=== PATIENT | female | born 1990 | race Caucasian/White ===

== ENCOUNTER 2016-12-26 19:06 | Emergency (ER) | payer BC ==
[2016-12-26 16:51] LABS: BASOPHILS 0.4 %; BASOPHILS ABSOLUTE 0.03 10/3/uL (0.0-0.16); EOSINOPHILS ABSOLUTE 0.07 10/3/uL (0.0-0.53); HEMATOCRIT 37.2 % (36.0-48.0); HEMOGLOBIN 11.8 g/dL (12.0-16.0); IMMATURE GRANULOCYTES 0.3 %; IMMATURE GRANULOCYTES ABSOLUTE 0.02 10/3/uL (0.0-0.11); LYMPHOCYTES 31.6 %; LYMPHOCYTES ABSOLUTE 2.18 10/3/uL (0.67-4.30); MEAN CORPUS HGB CONC 31.7 g/dL (32.0-36.0); MEAN CORPUSCULAR HEMOGLOB 30.1 pg (26.0-34.0); MEAN CORPUSCULAR VOLUME 94.9 fL (80-100); MEAN PLATELET VOLUME 11.2 fL (9.2-13.0); MONOCYTES 6.7 %; MONOCYTES ABSOLUTE 0.46 10/3/uL (0.21-1.20); NEUTROPHILS ABSOLUTE 4.13 10/3/uL (2.02-8.40); PLATELET COUNT 257 10/3/uL (150-400); RBC DISTRIBUTION WIDTH 13.7 % (12.0-16.0); RED CELL COUNT 3.92 10/6/uL (4.0-5.6); WHITE BLOOD CELLS 6.9 10/3/uL (4.5-10.5)
[2016-12-26 16:52] LABS: MANUAL DIFF NO %
[2016-12-26 16:55] LABS: ASCORBIC ACID (UR NOT ORDER) NEG (NEG); BILIRUBIN, URINE NEGATIVE (NEG); ER URINALYSIS TAT 0 Hrs 08 Mins; KETONE, URINE NEGATIVE (NEG); LEUKOCYTE ESTERASE(NOT OR SMALL (NEG); NITRITE (URINE) NEG (NEG); WBC (NOT ORDERED) (RFLEX) 4 (0-5)
[2016-12-26 17:15] LABS: A/G RATIO 0.9 (0.7-1.9); ALBUMIN 3.7 G/DL (3.5-5.0); ALKALINE PHOSPHATASE 138 U/L (45-117); BUN (BLOOD UREA NITROGEN) 9 MG/DL (6-23); CALCIUM, SERUM 8.5 MG/DL (8.5-10.4); CHLORIDE, SERUM 110 MMOL/L (96-112); CO2 (CARBON DIOXIDE) 24 MMOL/L (24-34); CREATININE 0.78 MG/DL (0.55-1.02); GFR AFRICAN AMERICAN 123 ML/MIN (>=60); GFR NON AFRICAN AMERICAN 106 ML/MIN (>=60); GLUCOSE, SERUM 88 MG/DL (60-99); POTASSIUM, SERUM 3.5 MMOL/L (3.5-5.3); SGOT(AST) 14 U/L (5-40); SGPT(ALT) 36 U/L (5-65); SODIUM, SERUM 143 MMOL/L (135-148); TOTAL BILIRUBIN 0.3 MG/DL (0-1.2); TOTAL PROTEIN 7.7 G/DL (6.0-8.5)
[~2016-12-26 19:06] MED LIST: CEFADROXIL1 GM; CEFT5 PO; CIP5 PO; DEPO PROVERA IM; DIL2TAB PO; DIL4TAB; DIL4TAB PO; FERROUS SULF325 M1 PO; FESO4 PO; FIOR PO; FIORICET/COD OR; FIORINALC PO; FLAG500TAB PO; FLORASTOR250 MG PO; FLUCON2; HALF81 PO; HARD NAILS PO; IRON PO; IRON325 MG PO; LEVAQUIN750 MG PO; MICRO-K10 MEQ PO; MULTI-VIT HP OR; MULTIVIT/MIN PO; NORCO1 TAB PO; PCET PO; PERCOCET1 TA2 PO; PR25 PO; PREVALITE4 G1 PO; PROAIR HFA INH; PROTONIX; PROTONIX PO; PROZAC40 MG PO; QUESLITE; TRAZ100 PO; TRAZODONE150 MG PO; ULTRAM50; ULTRAM50 PO; VIB100 PO; VIBRATAB100 MG; ZOFRANODT8 PO; [UNRECOGNIZED DRUG - OTHER] PO; [UNRECOGNIZED DRUG - OTHER] PO
== END 2016-12-26 19:59 | disposition home or self-care (01) ==
LOC: ER 19:06
PROVIDERS: Nurse Practitioner Acute Care
DX: K50.90 Crohn's disease, unspecified, without complications (principal); J45.909 Unspecified asthma, uncomplicated; K21.9 Gastro-esophageal reflux disease without esophagitis; F32.9 Major depressive disorder, single episode, unspecified; F41.9 Anxiety disorder, unspecified; D64.9 Anemia, unspecified; Z88.5 Allergy status to narcotic agent; Z79.899 Other long term (current) drug therapy
CPT/HCPCS: 74178; 80053; 81001; 83690; 84703; 85025; 87086; 96374; 96375; 99285; J1170; J2405; Q9967

== ENCOUNTER 2017-03-12 13:39 | Inpatient (IN) | payer BC ==
--- NOTE | ~2017-03-12 | CN ---
Consultation Report [facility] [address] [place]. [address] NAME: CHARISSA MILLS : 89 STATUS : ADM IN [facility]#: [id number] AGE: 26 ADM/REG DATE : 03/12/17 MR#: [id number] REPORT SERV DATE: 03/13/17 DICTATED BY: CHALINO BOSWELL DATE: 03/13/17 REPORT STATUS : Draft TRANSCRIBED BY: MODL DATE: 03/13/17 GI CONSULTATION DATE OF CONSULTATION: REASON FOR CONSULTATION: For Crohn disease and abdominal pain. HISTORY OF PRESENT ILLNESS: This is a 26-year-old white female, who is a patient Dr. Gagandeep Aviles. She was diagnosed with Crohn disease, had an ileal resection back in 2014, apparently had anastomotic leak and ended up with abscesses and had to have reoperation. It looks like the original surgery was in 11/[address] Benavides, had anastomotic leak and went back to the operating room 12/02/2014 for anastomotic leak, has lysis of adhesions, irrigation of abdominal cavity, resection of coloileal anastomosis, and stapling of the colon. She then underwent a surgery in 05/2015 with exploratory laparotomy, lysis of adhesions, amputation of the transverse colon, closed Rachelle pouch, removal of Yi ileostomy with ileotransverse colostomy and anastomosis stapled, a small peristomal hernia was seen and repaired. The patient then also had surgery by Dr. Apple for incisional hernia repair 02/23/2016. She had called yesterday with complaints of severe abdominal pain, was instructed to go to the emergency room. Normally, she has two to six stools per day and she reported that has not changed. She has daily abdominal pain, which increased in intensity over the last 48 hours. She has also had a couple of days of nausea and vomiting. She denies any fever or chills. Main complaint is the intensity of the pain has increased. She denies any hematochezia over the last 48 hours. No melena. No hematemesis. Pain is increased with bowel movements and also eating. PAST MEDICAL HISTORY: Includes Crohn disease, migraine headaches, gastroesophageal reflux, anxiety, history of drug abuse, narcotic dependency, and chronic pain and is managed by a pain management, Dr. Henderson. PAST SURGICAL HISTORY: As listed above. HOME MEDICATIONS: Include Butrans, Cimzia, Klonopin, Flexeril, Neurontin, Percocet, trazodone, and Effexor. ALLERGIES: MORPHINE. REVIEW OF SYSTEMS: A 10-point review of systems, otherwise, negative. HABITS: History of smoking. Apparently a former smoker. Occasional alcohol. No drug use reported. PHYSICAL EXAMINATION: VITAL SIGNS: Temperature is 99.7, pulse 77, blood pressure 103/64, O2 saturation is 98%, Consultation Report [address] [address] NAME: CHARISSA MILLS : [birth year] STATUS : ADM IN PAT#: [id number] AGE: 26 ADM/REG DATE : 03/12/17 MR#: [id number] REPORT SERV DATE: 03/13/17 DICTATED BY: CHALINO BOSWELL DATE: 03/13/17 REPORT STATUS : Draft TRANSCRIBED BY: KIANA DATE: 03/13/17 and respiratory rate is 16. HEENT: Normocephalic and atraumatic. Extraocular muscles are intact. NECK: Supple. No JVD. HEART: Regular without murmurs, thrills, or lifts. LUNGS: Clear to auscultation without rales or rhonchi. ABDOMEN: She has diffuse tenderness mainly below the navel area and right lower quadrant. EXTREMITIES: No cyanosis, clubbing, or edema. NEUROLOGIC: She is alert, oriented, and answers questions appropriately. PSYCHIATRIC: Normal mood and affect. LABORATORY DATA: CT scan 03/12/2017 without contrast showed no acute changes, on the noncontrast CT of the abdomen and pelvis. Sodium is 145, potassium 4.2, chloride 114, CO2 is 27, BUN 7, and creatinine 0.71. Lipase 77. LFTs are normal except alkaline phosphatase was mildly elevated at 151. White count is 10.4, which is down from 17, hemoglobin 11.5, hematocrit 34.9, platelet count 298. IMPRESSION: 1. Crohn's exacerbation with increased abdominal pain. 2. History of ileal Crohn's, on Cimzia, status post resection and reanastomosis. 3. Chronic pain, managed by pain management, Dr. Henderson. RECOMMENDATION: 1. I agree with stool studies. Rule out infection. 2. Empiric antibiotics for now. 3. If stools are negative, plan to institute IV steroids. 4. If pain persists, may need to get a contrast CT. We will follow with you. LISBET/KIANA Chalino Boswell M.D. / [id number] CC: MD Gonzalo Stewart II, M.D.
--- NOTE | ~2017-03-12 | HP ---
History And Physical [id number] [place]. [address] NAME: CHARISSA MILLS : [birth year] STATUS : ADM IN [facility]#: [id number] AGE: 26 ADM/REG DATE : 03/12/17 MR#: [id number] REPORT SERV DATE: 03/12/17 DICTATED BY: STEVIE HERNÁNDEZ DATE: 03/12/17 REPORT STATUS : Draft TRANSCRIBED BY: MODL DATE: 03/12/17 DATE OF ADMISSION: 03/12/2017 HISTORY OF PRESENT ILLNESS: This is a 26-year-old female with a past medical history of Crohn disease, who presented to [facility] Emergency Room complaining of abdominal pain, which was worsening from the baseline abdominal pain. The patient reported that since she had her surgery in 2014 when she had perforation secondary to her Crohn disease, she always had chronic abdominal pain, but for the last couple of days the pain was worsening and the patient had episodes of nausea and vomiting yesterday and the day before as well as she had diarrhea worsening, at least 5 bowel movements a day without any blood in it. The patient reported that the pain located in the mid abdominal pain, but it is moving through the abdomen in different places on the right and left from the mid abdominal area. It is sharp in character. She denies any chest pain. No shortness of breath. No fever. No rash. No headache. REVIEW OF SYSTEMS: 14-point review of systems was done and negative, except what is stated in the history of present illness. PAST MEDICAL HISTORY: 1. Known for history of Crohn disease and history of perforation secondary to Crohn disease in 2014, history of ileostomy after perforation, history of abscess treatment after perforation. 2. History of exploratory laparotomy. 3. History of partial colonic resection. 4. History of ileostomy reversal. 5. History of depression and anxiety. 6. History of narcotic dependency, now goes with the pain management, Dr. Crook, with Dr. Gagandeep Henderson. 7. She has history of mild asthma, for which she takes inhaler. 8. History of gastroesophageal reflux disease. 9. History of iron deficiency anemia. 10.History of pelvic abscess, status post surgery. PAST SURGICAL HISTORY: Includes appendectomy, terminal ileal resection and ileocolic anastomosis, pelvic abscess drainage. SOCIAL HISTORY: No tobacco. No alcohol use. She is a former smoker. She uses alcohol socially, she said maybe very rare. 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 ALLERGIES: SHE IS ALLERGIC TO MORPHINE. FAMILY HISTORY: Mother has diabetes. Father has porphyria. HOME MEDICATIONS: She takes Cimzia as well as she takes trazodone, Prozac. She is on pain management with a Butrans patch, as well as she is on oxycodone. Pharmacy is going to History And Physical [address] [address] NAME: CHARISSA MILLS : [birth year] STATUS : ADM IN PAT#: [id number] AGE: 26 ADM/REG DATE : 03/12/17 MR#: [id number] REPORT SERV DATE: 03/12/17 DICTATED BY: STEVIE HERNÁNDEZ DATE: 03/12/17 REPORT STATUS : Draft TRANSCRIBED BY: KIANA DATE: 03/12/17 clarify all her home medications. Also, the patient never had a history of Clostridium difficile in the past. PHYSICAL EXAMINATION: GENERAL: A well-nourished and well-developed female, not in acute distress. Resting quietly. VITAL SIGNS: Blood pressure 104/68, temperature 98.4, heart rate in one-teens earlier but then in 90s, respiratory rate 20, oxygen saturation 97% on room air. HEENT: Head; atraumatic, normocephalic. Conjunctivae clear. Pupils are equal and reactive to light and accommodation. Extraocular muscles are intact. NECK: Supple. Trachea is midline. No supraclavicular or cervical lymphadenopathy. LUNGS: Clear to auscultation bilaterally. Normal respiratory effort. CARDIOVASCULAR SYSTEM: Regular rate and rhythm. Point of maximal impulse not displaced. ABDOMEN: Very soft. There is tenderness to palpation in the mid abdominal area, also in the right and left side. There are normoactive positive bowel sounds. There is no guarding on rebound. Very benign abdominal examination. EXTREMITIES: No clubbing, cyanosis, or edema. SKIN: Normal color and turgor. PSYCHIATRIC: Anxious mood and affect. LABORATORY RESULTS: White count 17.4, hemoglobin 14, hematocrit 42.1, platelet count 335. Sodium 141, potassium 3.8, chloride 108, carbon dioxide 26, BUN 8, creatinine 0.89, blood sugar 92. ALT 35, AST 24, lipase 77. Urinalysis showed trace amount of ketones and trace amount of leukocyte esterase, only 4 white cells. test was negative. CT abdomen and pelvis without contrast, which was done today, no evidence of inflammation or abscess in the region of appendix or elsewhere. Bladder is unremarkable. No abnormalities in the uterus and adnexa. In the abdomen, there are air fluid levels seen in the colon in a nonobstructive pattern. No small bowel distention. The liver and spleen are normal in size with no masses. Overall impression, no acute changes on noncontrast CT of the abdomen and pelvis. ASSESSMENT AND PLAN: This is a 26-year-old female with a history of Crohn disease, history of bowel resection and perforation in the past, who presented with increased abdominal pain for the last couple of days with episodes of nausea and increased diarrhea, was found to have normal CT of the abdomen and pelvis, with significant leukocytosis. We are going to admit the patient to the hospital. We will give the patient IV fluid hydration. Landon, nurse practitioner, in the emergency room spoke with Dr. Malone, who recommended the patient to be started on Levaquin and Flagyl, and the patient was given Levaquin and Flagyl per recommendation of Dr. Malone already in the emergency room. We are going to check her stool studies if she will have more diarrhea. We will check stool for Clostridium difficile. We will check stool for white cells and stool cultures, and antibiotics will be continued as well as if stool will be positive for Clostridium difficile, next dose of Levaquin will not be given. Also, presser all around Dr. Malone will be consulted. We will give her also symptomatic treatment of nausea and vomiting, as well as regarding her pain, she has narcotic History And Physical [address] [address] NAME: CHARISSA MILLS : 89 STATUS : ADM IN [facility]#: [id number] AGE: 26 ADM/REG DATE : 03/12/17 MR#: [id number] REPORT SERV DATE: 03/12/17 DICTATED BY: STEVIE HERNÁNDEZ DATE: 03/12/17 REPORT STATUS : Draft TRANSCRIBED BY: MODSarah DATE: 03/12/17 dependency, we will give her reasonable amount of pain control with intravenous Dilaudid, but we will hold for sedation. The patient also takes Butrans and other medications such as oxycodone, and the patient and her father were explained that these medications can cause over-sedation. Her home medications clarified by pharmacy, they include Butrans 7.5 patch every seven days on Tuesday, Cimzia one dose every 30 days, Klonopin 0.5 mg p.o. three times daily p.r.n. for anxiety, Flexeril 5 mg three times daily p.r.n. for spasm, Neurontin 600 p.o. b.i.d. and 1200 at bedtime, trazodone 150 at bedtime p.r.n., she is also on Effexor 150 mg p.o. daily. We will hold trazodone for over sedation as well as Neurontin if she is sedated. My partner will see this patient starting tomorrow morning. Everything was discussed with the patient and her father. MG/MODL Stevie Hernández M.D. / [id number] CC: Gonzalo Samaniego II, M.D.
--- NOTE | ~2017-03-12 | DS ---
Discharge Summary [facility] [address] [place]. [address] NAME: CHARISSA MILLS : [birth year] STATUS : ADM IN [facility]#: [id number] AGE: 26 ADM/REG DATE : 03/12/17 MR#: [id number] REPORT SERV DATE: 03/20/17 DICTATED BY: JOLENE GALEANO LITZY DATE: 03/19/17 REPORT STATUS : Draft TRANSCRIBED BY: MODL DATE: 03/19/17 ADMISSION DATE: 03/12/2017 DISCHARGE DATE: The patient is a 26-year-old female with a history significant for Crohn disease who is status post Crohn disease in 2014 which required resection with anastomosis. Significantly status post the anastomosis, re-evaluation noted that the anastomosis had leaked, and she was reoperated on and required ileostomy that was temporary. Given the complication, the patient was managed for an extended period in the ICU. Her first surgery was in November of 2014 and her re-operation due to the leak was on 12/02/2014 during which time patient was managed in the ICU. The patient was reoperated in May 2015 with re-establishment of an alimentary canal. Also on 02/23/2016, the patient had an incisional hernia repair by Dr. Apple. Secondary to her multiple surgeries, the patient has been managed for chronic pain by the pain specialist in Dr. Henderson's group. The patient now presented to the hospital on 03/12/2017 with a complaint of abdominal pain which was worsening from baseline. For further details, please refer to H and P dictated by Dr. Ramos on 03/12/2017. Upon presentation to the hospital, the patient was admitted on the Hospitalist Service for further management. Given her history of complicated Crohn disease, GI was consulted to assist with management. For further details, please refer to consultation note by GI dictated by Dr. Panda on 03/13/2017. Multiple treatment options were tried including initiation of antibiotics with no control of pain. The patient was placed on opioid pain medications with no good control achieved for her pain. During hospital course, the patient was very nervous about her abdominal pain stating that her abdominal pain was similar to her 2015 abdominal pain which resulted in perforation requiring surgery. Given her concern, Surgery was subsequently consulted. For further details, please refer to consultation note dictated by Dr. Benavides on 03/17/2017. During hospital course, the patient has had extensive workup including an upper endoscopy. She has had multiple imaging of her abdomen including CT, MRI, ultrasound of the gallbladder, a HIDA scan, a transvaginal ultrasound, all which have come back negative. Per Surgery's evaluation, there is no indication for any surgical intervention at this time. However given extensive workup, the patient is still complaining of abdominal pain. Workup has been concluded by GI, and GI has signed off on the case. Surgery has evaluated the patient and has deemed that there is no surgical intervention indicated at this time based on the imaging studies. Given conclusion of workup, the patient will be discharged today to follow up with Surgery as outpatient. Plan has been discussed with the patient, who voices understanding and is agreeable with this plan. DISCHARGE DIAGNOSES: 1. Abdominal pain. 2. History of Crohn disease. 3. Chronic pain management. 4. History of perforation secondary to Crohn disease. DISCHARGE PHYSICAL EXAMINATION: VITAL SIGNS: Blood pressure 111/56 with a pulse of 60, Discharge Summary [address] [address] NAME: CHARISSA MILLS : [birth year] STATUS : ADM IN PAT#: [id number] AGE: 26 ADM/REG DATE : 03/12/17 MR#: [id number] REPORT SERV DATE: 03/20/17 DICTATED BY: JOLENE GALEANO DATE: 03/19/17 REPORT STATUS : Draft TRANSCRIBED BY: KIANA DATE: 03/19/17 respirations 12, O2 saturation 99% on room air. GENERAL: The patient lying in bed, appears stated age in no apparent acute distress. HEENT: Normocephalic and atraumatic. Extraocular motors intact. Oral mucosa moist. Pupils are round and reactive to light and accommodation. NECK: Trachea midline and symmetric. No thyromegaly present. No JVD noted. CHEST: Nontender to palpation. No scars noted. CARDIOVASCULAR: Regular rate and rhythm. S1, S2. No murmurs, rubs, or gallops. LUNGS: Clear to auscultation bilaterally. No wheezes, rales, or rhonchi. ABDOMEN: Positive bowel sounds. Tenderness noted in the right upper and lower quadrant to deep palpation. Abdominal scar is also noted on the right quadrant, well healed. Deep palpation not done secondary to pain. EXTREMITIES: No cyanosis, no clubbing, no edema. NEUROLOGIC: Alert and oriented x3. No focal deficits appreciated. IMAGIN. CT abdomen and pelvis without contrast on 03/12/2017 impression: No acute changes on noncontrast CT exam of the abdomen and pelvis. 2. Gallbladder ultrasound impression: Negative ultrasound exam of gallbladder. 3. HIDA scan with EF, impression: Normal HIDA scan with gallbladder ejection fraction of 82%. 4. MRI abdomen with and without contrast impression: Postoperative changes identified consistent with prior partial colon and ileal-small bowel resection. There is some collapse of bowel loops in the left upper abdomen and no evidence of mechanical obstruction. There is no evidence of any focal inflammation of the GI tract. 5. MRI pelvis with and without contrast impression: Postoperative changes identified consistent with prior partial colon and ileal-small bowel resection. There is some collapse of small bowel loops in the left upper abdomen. No evidence of mechanical obstruction. There is no evidence of any focal inflammation of the GI tract. 6. Pelvic ultrasound diagnostic echo impression: Normal pelvic ultrasound. No adnexal masses or ascites seen. CONSULTANTS: 1. GI. 2. Surgery. DISPOSITION: The patient will be discharged home to follow up with Surgery and primary care physician. ACTIVITY: As tolerated. DIET: As tolerated. Greater than 40 minutes was spent providing counseling, dictation of note, dressing concerns of the patient, medication reconciliation, discussion of care with nursing staff. DICTATED BY: Jolene Galeano MD Discharge Summary [address] [address] NAME: CHARISSA MILLS : [birth year] STATUS : ADM IN [facility]#: [id number] AGE: 26 ADM/REG DATE : 03/12/17 MR#: [id number] REPORT SERV DATE: 03/20/17 DICTATED BY: JOLENE GALEANO DATE: 03/19/17 REPORT STATUS : Draft TRANSCRIBED BY: MODSarah DATE: 03/19/17 LIV/KIANA Jolene Galeano MD / [id number] CC: MD Jolene Gonazlez II, M.D.
--- NOTE | ~2017-03-12 | EGD ---
EGD REPORT [facility] [address] [address] NAME: CHARISSA GEORGE : 89 STATUS : ADM IN PAT#: [id number] AGE: 26 ADM/REG DATE : 03/12/17 MR#: [id number] REPORT SERV DATE: 03/18/17 DICTATED BY: MAX FORD DATE: 03/18/17 REPORT STATUS : Draft TRANSCRIBED BY: [facility] DATE: 03/18/17 Endoscopy Center Patient Name: Charissa George Date of : 1990 Attending MD: MAX BAPTISTE MD Procedure Date No Time: 03/18/2017 Procedure: Upper GI endoscopy Indications: Generalized abdominal pain, Nausea Referring MD: JOLENE HERNÁNDEZ II Medicines: Monitored Anesthesia Care Complications: No immediate complications. Estimated blood loss: Minimal. Procedure: Pre-Anesthesia Assessment: - ASA Grade Assessment: III - A patient with severe systemic disease. After obtaining informed consent, the endoscope was passed under direct vision. Throughout the procedure, the patient's blood pressure, pulse, and oxygen saturations were monitored continuously. The GIF [id number] was introduced through the mouth, and advanced to the second part of duodenum. The upper GI endoscopy was accomplished without difficulty. The patient tolerated the procedure well. Findings: The examined esophagus was normal. The entire examined stomach was normal. Biopsies were taken with a cold forceps for Helicobacter pylori testing. Estimated blood loss was minimal. Dilated lacteals were found at 2nd part of the duodenum. Biopsies were taken with a cold forceps for evaluation of celiac disease. Estimated blood loss was minimal. The cardia and gastric fundus were normal on retroflexion. The exam was otherwise without abnormality. Impression: - Unremarkable examination of the upper GI tract - No obvious explanation for symptoms Recommendation: - Return patient to hospital [facility] for ongoing care. - Await pathology results. - Use Protonix (pantoprazole) 40 mg PO daily. Procedure Code(s): --- Professional --- 68969, Esophagogastroduodenoscopy, flexible, transoral; with biopsy, single or multiple EGD REPORT [address] [address] NAME: CHARISSA GEORGE : [birth year] STATUS : ADM IN [facility]#: [id number] AGE: 26 ADM/REG DATE : 03/12/17 MR#: [id number] REPORT SERV DATE: 03/18/17 DICTATED BY: MAX FORD DATE: 03/18/17 REPORT STATUS : Draft TRANSCRIBED BY: [employer] DATE: 03/18/17 Diagnosis Code(s): --- Professional --- K31.9, Disease of stomach and duodenum, unspecified R10.84, Generalized abdominal pain R11.0, Nausea CPT copyright 2013 [employer]. All rights reserved. The codes documented in this report are preliminary and upon patient transportation driver review may be revised to meet current compliance requirements. Max Baptiste MD MAX BAPTISTE MD 03/18/2017 7:49 AM This report has been signed electronically. Number of Addenda: 0 Note Initiated On: 03/18/2017 7:11 AM Scope Withdrawal Time 0 hours 0 minutes 0 seconds
--- NOTE | ~2017-03-12 | CN ---
Consultation Report [facility] [address] [place]. [address] NAME: CHARISSA GEORGE : 89 STATUS : ADM IN [facility]#: [id number] AGE: 26 ADM/REG DATE : 03/12/17 MR#: [id number] REPORT SERV DATE: 03/17/17 DICTATED BY: BENITO BENAVIDES III DATE: 03/16/17 REPORT STATUS : Draft TRANSCRIBED BY: MODL DATE: 03/16/17 CONSULTATION FOR SURGERY. DATE OF CONSULTATION: 03/16/2017 HISTORY OF PRESENT ILLNESS: Charissa George is a 26-year-old female well known to me from previous management of severe Crohn disease. The patient presents now with continued chronic abdominal pain on pain management by Dr. Henderson. She gives a history of severe pain and interrupted episodes of chronic pain interrupted by exacerbations of severe abdominal pain mostly in the mid lower abdomen. She is now admitted secondary to acute episode with leukocytosis with no particular precipitating event. She has been followed diligently by Dr. Aviles and has had followup colonoscopy with ileal intubation back in December of this year as well as a CT scan done in December that showed very little active Crohn disease. Past history on the patient is significant that she had a significant episode of Crohn disease in 2014 that required a resection with anastomosis, but the anastomotic area leaked and she was re-operated and required an ileostomy that was temporary. She had a significant amount of bowel resection at that time. She was in the intensive care unit for some time, but eventually responded and was able to go home to be followed up back in the operating room. Her original surgery was in first part of 11/2014 and her anastomotic leak was operated on 12/02/2014. She ultimately underwent an operation in 05/2015 for a re- establishment of alimentary canal continuity removing most of the transverse colon and closing the Rachelle's pouch with removal of the Yi ileostomy with an ileotransverse colostomy, staple anastomosis. She also has a small parastomal hernia that was repaired at that time. Subsequently, on 02/23/2016, she had an incisional hernia repair by Dr. Apple. She has continued to have chronic pain, but now complains of admission secondary to severe abdominal pain exacerbation. She typically has 2-6 loose stools a day, which have been unchanged. She has had nausea and vomiting accompanying the present illness, but has had no fever or chills. She denies blood in her stool or vomitus and states that her pain is worse with straining to have bowel movements, urinate, or eat. PAST MEDICAL HISTORY: Includes Crohn disease, migraine headaches, gastroesophageal reflux disease, anxiety disorder, history of drug abuse, narcotic dependency on chronic pain management by Dr. Henderson. She also has implants for controlled in her arm, which were in about a year. MEDICATIONS: Her home medicines include Butrans, Cimzia kit, Klonopin, Flexeril, Neurontin 600 at breakfast and lunch and 1200 at bedtime, oxycodone 7.5/325 one twice a day, trazodone 150 mg at bedtime, and Effexor XR 150 mg daily. Also, again stated that she has implants for hormone manipulation to prevent periods which she does not have since that implant. Consultation Report [address] [place]. [address] NAME: CHARISSA GEORGE : 89 STATUS : ADM IN [facility]#: [id number] AGE: 26 ADM/REG DATE : 03/12/17 MR#: [id number] REPORT SERV DATE: 03/17/17 DICTATED BY: BENITO BENAVIDES III DATE: 03/16/17 REPORT STATUS : Draft TRANSCRIBED BY: KIANA DATE: 03/16/17 ALLERGIES: SHE IS ALLERGIC TO MORPHINE. REVIEW OF SYSTEMS: In addition, review of systems show her to be gaining some weight and she does have migraine headaches followed by Dr. Pan Pate; has asthma, on inhaler which she hardly ever uses. First diagnosis of Crohn disease was in 11/2014. Her colonoscopy was in 12/2015 or 01/[address] Aviles. She has a history of UTIs and ovarian cyst. She has a history of depression, anxiety, and sees Dr. Wolff for that problem. She also has some chronic anemia. Her PCP is Dr. 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 She denies any particular exercise program. She has had an iliac plexus block by Dr. Armaan dan for pain alleviation as well as a transabdominal plane block by Dr. Henderson. PHYSICAL EXAMINATION: GENERAL: The patient is a mildly obese white female, in no acute distress. HEENT: Without lateralization. She does have a nasal ring. NECK: Her neck was supple without thyromegaly or lymphadenopathy. CHEST: Clear. HEART: Regular rate and rhythm. ABDOMEN: Soft with multiple scars that are well healed without hernia. She was tender mostly in the suprapubic and 4 to 8 cm above the symphysis pubis, more in the midline with very little right lower quadrant tenderness. Her bowel sounds were normal. IMAGING: CAT scans were reviewed from 01/07 and 03/12 and reviewed with radiologist, Dr. Smith. Also, an MRI from 03/15 was reviewed with radiologist Dr. Smith. Very little inflammatory response was noted on the studies from 12/2015, but there is slightly more inflammatory response on the 02/2017 study although it was not called by the radiology analysis. MRI shows very little abnormality. The patient's lab work showed initially a leukocytosis, but her leukocytosis is since resolved. FAMILY HISTORY: Positive for recent diagnosis in her father of intermittent of porphyria which was recently diagnosed and symptoms in grandmother that are suspicious for porphyria. SOCIAL HISTORY: She works at a [employer], has a history of smoking and says that she has quit. Occasional alcohol use. Denies present drug abuse, but uses the drugs prescribed for her. LABORATORY DATA: Lab work on admission showed her alkaline phosphatase to be mildly elevated at 151 and her white count was slightly elevated on admission at 17,000, but has since normalized. Consultation Report [address] [address] NAME: CHARISSA GEORGE : 89 STATUS : ADM IN [facility]#: [id number] AGE: 26 ADM/REG DATE : 03/12/17 MR#: [id number] REPORT SERV DATE: 03/17/17 DICTATED BY: BENITO BENAVIDES III DATE: 03/16/17 REPORT STATUS : Draft TRANSCRIBED BY: KIANA DATE: 03/16/17 IMPRESSION: She has Crohn disease with probable exacerbation with increased abdominal pain, rule out other sources; history of ileal Crohn disease on Cimzia, status post resection and anastomosis. Chronic pain management and history of multiple blocks for attempted control. We also consider diagnosis of intermittent porphyria which may be very difficult to diagnose since this test is usually only positive when the patient is having an exacerbation. Also, endometriosis could be problematic as well as intermittent small bowel obstruction complicated by the patient's history of drug over utilization and dependence. We will order an ultrasound of the pelvis as well as urine porphyrins. There is no surgical indication on this patient. I have explained to the patient and her father who was present that surgical intervention would be fraught with many potential complications including short-bowel syndrome since she has had a significant resection of bowel at this point and with the amount of adhesions and scar tissue as well as potential extensive resection, she could end up with short-bowel syndrome, requiring chronic TPN or elemental feedings or worse. Surgical intervention should be only considered for issues of extreme acuity and/or failure of response to therapy in the face of extreme acuity. RB/MODL Benito Benavides III, M.D. / [id number] CC: MD Gonzalo Gonzalez II, M.D. Gregory Olds, MD Kent Childs, MD
[2017-03-12 14:38] LABS: ASCORBIC ACID (UR NOT ORDER) NEG (NEG); BILIRUBIN, URINE SMALL (NEG); ER URINALYSIS TAT 0 Hrs 12 Mins; KETONE, URINE TRACE MG/DL (NEG); LEUKOCYTE ESTERASE(NOT OR TRACE (NEG); NITRITE (URINE) NEG (NEG); WBC (NOT ORDERED) (RFLEX) 4 (0-5)
[2017-03-12 15:16] LABS: BASOPHILS 0.2 %; BASOPHILS ABSOLUTE 0.03 10/3/uL (0.0-0.16); EOSINOPHILS 0.2 %; EOSINOPHILS ABSOLUTE 0.04 10/3/uL (0.0-0.53); IMMATURE GRANULOCYTES 0.4 %; IMMATURE GRANULOCYTES ABSOLUTE 0.07 10/3/uL (0.0-0.11); LYMPHOCYTES 18.4 %; LYMPHOCYTES ABSOLUTE 3.21 10/3/uL (0.67-4.30); MEAN CORPUSCULAR HEMOGLOB 32.6 pg (26.0-34.0); MEAN PLATELET VOLUME 10.6 fL (9.2-13.0); MONOCYTES 5.8 %; MONOCYTES ABSOLUTE 1.02 10/3/uL (0.21-1.20); NEUTROPHILS ABSOLUTE 13.07 10/3/uL (2.02-8.40); RBC DISTRIBUTION WIDTH 13.7 % (12.0-16.0)
[2017-03-12 15:17] LABS: ER CBC TAT 0 Hrs 11 Mins; HEMATOCRIT 42.1 % (36.0-48.0); MANUAL DIFF NO %; MEAN CORPUS HGB CONC 33.3 g/dL (32.0-36.0); MEAN CORPUSCULAR VOLUME 97.9 fL (80-100); PLATELET COUNT 335 10/3/uL (150-400); WHITE BLOOD CELLS 17.4 10/3/uL (4.5-10.5)
[2017-03-12 15:35] LABS: ALBUMIN 3.9 G/DL (3.5-5.0); BUN (BLOOD UREA NITROGEN) 8 MG/DL (6-23); CALCIUM, SERUM 8.5 MG/DL (8.5-10.4); CHLORIDE, SERUM 108 MMOL/L (96-112); CO2 (CARBON DIOXIDE) 26 MMOL/L (24-34); CREATININE 0.89 MG/DL (0.55-1.02); GFR AFRICAN AMERICAN 105 ML/MIN (>=60); GFR NON AFRICAN AMERICAN 91 ML/MIN (>=60); GLOBULIN 4.1 G/DL (2.5-4.1); GLUCOSE, SERUM 92 MG/DL (60-99); SGPT(ALT) 35 U/L (5-65); SODIUM, SERUM 141 MMOL/L (135-148); TOTAL BILIRUBIN 0.5 MG/DL (0-1.2)
[2017-03-12 15:37] LABS: ALKALINE PHOSPHATASE 151 U/L (45-117); POTASSIUM, SERUM 3.8 MMOL/L (3.5-5.3); SGOT(AST) 24 U/L (5-40)
[2017-03-12] MEDS ORDERED: NEUR600 PO ×2 (18:08)
[2017-03-12] MEDS ORDERED: PERCOCET 7.5/321 TAB PO (18:09)
[2017-03-12] MEDS ORDERED: EFFEXOR XR150 MG PO (18:09)
[2017-03-12] MEDS ORDERED: BUTRANS1 EAC4 TOP (18:09)
[2017-03-12] MEDS ORDERED: CIMZIA SC (18:10)
[2017-03-12] MEDS ORDERED: TRAZODONE150 MG PO (18:10)
[2017-03-12] MEDS ORDERED: FLEXERIL5 MG PO (18:10)
[2017-03-12] MEDS ORDERED: KLONO5 PO (18:10)
[2017-03-13 05:06] LABS: BASOPHILS 0.2 %; BASOPHILS ABSOLUTE 0.02 10/3/uL (0.0-0.16); HEMATOCRIT 34.9 % (36.0-48.0); HEMOGLOBIN 11.5 g/dL (12.0-16.0); IMMATURE GRANULOCYTES 0.2 %; IMMATURE GRANULOCYTES ABSOLUTE 0.02 10/3/uL (0.0-0.11); LYMPHOCYTES 28.3 %; LYMPHOCYTES ABSOLUTE 2.94 10/3/uL (0.67-4.30); MANUAL DIFF NO %; MEAN CORPUSCULAR HEMOGLOB 32.6 pg (26.0-34.0); MEAN CORPUSCULAR VOLUME 98.9 fL (80-100); MEAN PLATELET VOLUME 10.6 fL (9.2-13.0); MONOCYTES 7.3 %; MONOCYTES ABSOLUTE 0.76 10/3/uL (0.21-1.20); NEUTROPHILS ABSOLUTE 6.56 10/3/uL (2.02-8.40); PLATELET COUNT 298 10/3/uL (150-400); RBC DISTRIBUTION WIDTH 13.9 % (12.0-16.0); RED CELL COUNT 3.53 10/6/uL (4.0-5.6); WHITE BLOOD CELLS 10.4 10/3/uL (4.5-10.5)
[2017-03-13 05:17] LABS: BUN (BLOOD UREA NITROGEN) 7 MG/DL (6-23); CALCIUM, SERUM 7.9 MG/DL (8.5-10.4); CHLORIDE, SERUM 114 MMOL/L (96-112); CO2 (CARBON DIOXIDE) 27 MMOL/L (24-34); CREATININE 0.71 MG/DL (0.55-1.02); GFR AFRICAN AMERICAN 138 ML/MIN (>=60); GFR NON AFRICAN AMERICAN 119 ML/MIN (>=60); GLUCOSE, SERUM 88 MG/DL (60-99); POTASSIUM, SERUM 4.2 MMOL/L (3.5-5.3); SODIUM, SERUM 145 MMOL/L (135-148)
[2017-03-14 07:18] LABS: BASOPHILS 0.1 %; BASOPHILS ABSOLUTE 0.01 10/3/uL (0.0-0.16); EOSINOPHILS 0.8 %; EOSINOPHILS ABSOLUTE 0.07 10/3/uL (0.0-0.53); HEMATOCRIT 35.8 % (36.0-48.0); HEMOGLOBIN 11.6 g/dL (12.0-16.0); IMMATURE GRANULOCYTES 0.2 %; IMMATURE GRANULOCYTES ABSOLUTE 0.02 10/3/uL (0.0-0.11); LYMPHOCYTES ABSOLUTE 3.14 10/3/uL (0.67-4.30); MANUAL DIFF NO %; MEAN CORPUS HGB CONC 32.4 g/dL (32.0-36.0); MEAN CORPUSCULAR HEMOGLOB 32.3 pg (26.0-34.0); MEAN CORPUSCULAR VOLUME 99.7 fL (80-100); MEAN PLATELET VOLUME 10.2 fL (9.2-13.0); MONOCYTES 6.5 %; MONOCYTES ABSOLUTE 0.58 10/3/uL (0.21-1.20); NEUTROPHILS 57.4 %; NEUTROPHILS ABSOLUTE 5.15 10/3/uL (2.02-8.40); PLATELET COUNT 273 10/3/uL (150-400); RBC DISTRIBUTION WIDTH 13.7 % (12.0-16.0); RED CELL COUNT 3.59 10/6/uL (4.0-5.6)
[2017-03-14 07:34] LABS: ALBUMIN 3.3 G/DL (3.5-5.0); CALCIUM, SERUM 8.3 MG/DL (8.5-10.4); CHLORIDE, SERUM 110 MMOL/L (96-112); CO2 (CARBON DIOXIDE) 30 MMOL/L (24-34); CREATININE 0.73 MG/DL (0.55-1.02); GFR AFRICAN AMERICAN 134 ML/MIN (>=60); GFR NON AFRICAN AMERICAN 115 ML/MIN (>=60); GLOBULIN 3.3 G/DL (2.5-4.1); GLUCOSE, SERUM 95 MG/DL (60-99); POTASSIUM, SERUM 3.9 MMOL/L (3.5-5.3); SGOT(AST) 9 U/L (5-40); SGPT(ALT) 26 U/L (5-65); SODIUM, SERUM 144 MMOL/L (135-148); TOTAL BILIRUBIN 0.8 MG/DL (0-1.2); TOTAL PROTEIN 6.6 G/DL (6.0-8.5)
[2017-03-14 07:35] LABS: ALKALINE PHOSPHATASE 131 U/L (45-117); BUN (BLOOD UREA NITROGEN) 3 MG/DL (6-23)
[2017-03-15 06:23] LABS: BASOPHILS 0.2 %; BASOPHILS ABSOLUTE 0.02 10/3/uL (0.0-0.16); EOSINOPHILS 0.9 %; EOSINOPHILS ABSOLUTE 0.09 10/3/uL (0.0-0.53); HEMATOCRIT 35.2 % (36.0-48.0); HEMOGLOBIN 11.5 g/dL (12.0-16.0); IMMATURE GRANULOCYTES 0.2 %; IMMATURE GRANULOCYTES ABSOLUTE 0.02 10/3/uL (0.0-0.11); LYMPHOCYTES 31.6 %; LYMPHOCYTES ABSOLUTE 3.13 10/3/uL (0.67-4.30); MEAN CORPUS HGB CONC 32.7 g/dL (32.0-36.0); MEAN CORPUSCULAR HEMOGLOB 32.6 pg (26.0-34.0); MEAN CORPUSCULAR VOLUME 99.7 fL (80-100); MEAN PLATELET VOLUME 10.3 fL (9.2-13.0); MONOCYTES 6.2 %; MONOCYTES ABSOLUTE 0.61 10/3/uL (0.21-1.20); NEUTROPHILS 60.9 %; NEUTROPHILS ABSOLUTE 6.04 10/3/uL (2.02-8.40); PLATELET COUNT 267 10/3/uL (150-400); RBC DISTRIBUTION WIDTH 13.6 % (12.0-16.0); RED CELL COUNT 3.53 10/6/uL (4.0-5.6); WHITE BLOOD CELLS 9.9 10/3/uL (4.5-10.5)
[2017-03-15 06:27] LABS: MANUAL DIFF NO %
[2017-03-15 06:41] LABS: BUN (BLOOD UREA NITROGEN) 8 MG/DL (6-23); CALCIUM, SERUM 8.3 MG/DL (8.5-10.4); CHLORIDE, SERUM 109 MMOL/L (96-112); CO2 (CARBON DIOXIDE) 30 MMOL/L (24-34); CREATININE 0.75 MG/DL (0.55-1.02); GFR AFRICAN AMERICAN 129 ML/MIN (>=60); GFR NON AFRICAN AMERICAN 112 ML/MIN (>=60); GLUCOSE, SERUM 102 MG/DL (60-99); POTASSIUM, SERUM 3.9 MMOL/L (3.5-5.3); SODIUM, SERUM 142 MMOL/L (135-148)
[2017-03-17 06:05] LABS: BASOPHILS 0.1 %; BASOPHILS ABSOLUTE 0.01 10/3/uL (0.0-0.16); EOSINOPHILS 1.3 %; EOSINOPHILS ABSOLUTE 0.12 10/3/uL (0.0-0.53); HEMATOCRIT 37.8 % (36.0-48.0); HEMOGLOBIN 12.2 g/dL (12.0-16.0); IMMATURE GRANULOCYTES 0.3 %; IMMATURE GRANULOCYTES ABSOLUTE 0.03 10/3/uL (0.0-0.11); LYMPHOCYTES 19.7 %; LYMPHOCYTES ABSOLUTE 1.83 10/3/uL (0.67-4.30); MEAN CORPUS HGB CONC 32.3 g/dL (32.0-36.0); MEAN CORPUSCULAR HEMOGLOB 32.4 pg (26.0-34.0); MEAN CORPUSCULAR VOLUME 100.5 fL (80-100); MEAN PLATELET VOLUME 10.6 fL (9.2-13.0); MONOCYTES 8.3 %; MONOCYTES ABSOLUTE 0.77 10/3/uL (0.21-1.20); NEUTROPHILS 70.3 %; NEUTROPHILS ABSOLUTE 6.55 10/3/uL (2.02-8.40); PLATELET COUNT 267 10/3/uL (150-400); RBC DISTRIBUTION WIDTH 13.7 % (12.0-16.0); RED CELL COUNT 3.76 10/6/uL (4.0-5.6); WHITE BLOOD CELLS 9.3 10/3/uL (4.5-10.5)
[2017-03-17 06:06] LABS: MANUAL DIFF NO %
[2017-03-17 06:17] LABS: BUN (BLOOD UREA NITROGEN) 7 MG/DL (6-23); CALCIUM, SERUM 8.3 MG/DL (8.5-10.4); CHLORIDE, SERUM 109 MMOL/L (96-112); CO2 (CARBON DIOXIDE) 30 MMOL/L (24-34); CREATININE 0.77 MG/DL (0.55-1.02); GFR AFRICAN AMERICAN 125 ML/MIN (>=60); GFR NON AFRICAN AMERICAN 108 ML/MIN (>=60); GLUCOSE, SERUM 96 MG/DL (60-99); SODIUM, SERUM 144 MMOL/L (135-148)
[2017-03-18 10:11] LABS: BASOPHILS 0.1 %; BASOPHILS ABSOLUTE 0.01 10/3/uL (0.0-0.16); EOSINOPHILS 0.5 %; EOSINOPHILS ABSOLUTE 0.05 10/3/uL (0.0-0.53); HEMATOCRIT 37.1 % (36.0-48.0); HEMOGLOBIN 12.2 g/dL (12.0-16.0); IMMATURE GRANULOCYTES 0.3 %; IMMATURE GRANULOCYTES ABSOLUTE 0.03 10/3/uL (0.0-0.11); LYMPHOCYTES 26.1 %; MEAN CORPUS HGB CONC 32.9 g/dL (32.0-36.0); MEAN CORPUSCULAR HEMOGLOB 33.2 pg (26.0-34.0); MEAN CORPUSCULAR VOLUME 100.8 fL (80-100); MEAN PLATELET VOLUME 10.5 fL (9.2-13.0); MONOCYTES ABSOLUTE 0.62 10/3/uL (0.21-1.20); NEUTROPHILS ABSOLUTE 6.94 10/3/uL (2.02-8.40); PLATELET COUNT 261 10/3/uL (150-400); RBC DISTRIBUTION WIDTH 13.5 % (12.0-16.0); RED CELL COUNT 3.68 10/6/uL (4.0-5.6); WHITE BLOOD CELLS 10.4 10/3/uL (4.5-10.5)
[2017-03-18 10:12] LABS: MANUAL DIFF NO %
[2017-03-18 10:17] LABS: INTERNATIONAL NORMAL RATI 1.2 UNITS (-); PROTIME (NOT ORD) 15.3 SEC (12.0-14.5)
[2017-03-18 10:19] LABS: BUN (BLOOD UREA NITROGEN) 8 MG/DL (6-23); CALCIUM, SERUM 8.2 MG/DL (8.5-10.4); CHLORIDE, SERUM 108 MMOL/L (96-112); CO2 (CARBON DIOXIDE) 30 MMOL/L (24-34); CREATININE 0.85 MG/DL (0.55-1.02); GFR AFRICAN AMERICAN 111 ML/MIN (>=60); GFR NON AFRICAN AMERICAN 96 ML/MIN (>=60); POTASSIUM, SERUM 3.6 MMOL/L (3.5-5.3); SODIUM, SERUM 143 MMOL/L (135-148)
[2017-03-18 10:20] LABS: GLUCOSE, SERUM 116 MG/DL (60-99)
[2017-03-19] MEDS ORDERED: PROTONIX PO (11:24)
[2017-03-24 11:18] LABS: TIME 24 h (()); VOLUME 1900 mL (())
[2017-03-29 12:57] LABS: COPROPORPHYRIN [CALC] 67 ug/24h (<78); UROPORPHYRIN [CALC] 27 ug/24h (<25)
== END 2017-03-20 03:42 | disposition home or self-care (01) | DRG 392 ==
LOC: ER 13:39 → 5SO 18:58
PROVIDERS: Emergency Medicine; Hospitalist; Internal Medicine Gastroenterology; Nurse Practitioner Family
PROC: 0DB68ZX Excision of Stomach, Via Natural or Artificial Opening Endoscopic, Diagnostic (ICD-10-PCS; 2017-03-18)
PROC: 0DB98ZX Excision of Duodenum, Via Natural or Artificial Opening Endoscopic, Diagnostic (ICD-10-PCS; principal; 2017-03-18 07:00)
DX: R10.9 Unspecified abdominal pain (principal); F11.20 Opioid dependence, uncomplicated; K50.00 Crohn's disease of small intestine without complications; F41.9 Anxiety disorder, unspecified; F32.9 Major depressive disorder, single episode, unspecified; J45.909 Unspecified asthma, uncomplicated; K21.9 Gastro-esophageal reflux disease without esophagitis; D50.9 Iron deficiency anemia, unspecified; G89.29 Other chronic pain; Z87.891 Personal history of nicotine dependence; Z88.5 Allergy status to narcotic agent; Z90.49 Acquired absence of other specified parts of digestive tract; Z98.890 Other specified postprocedural states; Z83.3 Family history of diabetes mellitus
CPT/HCPCS: 72197; 74176; 74183; 76705; 76830; 76856; 78227; 80048; 80053; 81001; 83690; 83735; 84120; 84703; 85025; 85610; 85652; 86140; 87045; 87046; 87046-59; 87328; 87329; 87493; 87493-59; 87899; 87899-59; 88305; 88342; 89055; 96374; 96375; 99285; A9270-GY; A9537; A9577; J1170; J1610; J1956; J2405; J2805; J2920